=== PATIENT | female | born 1980 | race Caucasian/White ===

== ENCOUNTER 2017-10-02 20:24 | Inpatient (IN) | payer BC ==
[2017-10-02 21:17] LABS: Hematocrit 37 % (35-47); Hemoglobin 12.7 g/dl (12.0-16.0); Mean Corpuscular HGB Conc 34 g/dl (31-36); Mean Corpuscular Hemoglobin 30 pg (27-31); Mean Corpuscular Volume 88 fL (80-97); Platelet Count 268 10^3/ul (150-450); Red Blood Count 4.26 10^6/ul (4.0-5.4); Red Cell Distribution Width 13 % (10.5-15)
[2017-10-02] MEDS ORDERED: OBEPIDURAL* 250 ML EPIDURAL ONE (21:29)
--- NOTE | 2017-10-02 21:36 | HP ---
General Information - General Information Maternal Age: 36 Grav: 1 Para: 0 Estimated Due Date: 09/29/17 Determined By: Early Ultrasound Maternal Blood Type and Rh: O Positive - Results this Serology/RPR Result: Non-Reactive Rubella Result: Immune HBsAg Result: Negative HIV Result: Negative GBS Culture Result: Negative Past Medical History Pertinent Past Medical History: Non-Contributory Past Medical History Comment: No medical problems Past Surgical History Comment: Appendectomy Pertinent Family History: Non-Contributory - Antepartal Records Antepartal Records: Reviewed, Complicated by: - Breech at 33wks with successful ECV by merchandising director Review of Systems Constitutional: Uncomfortable - with contractions CV Complaint: No Respiratory: Shortness of Breath: No Gastrointestinal: No Nausea/Vomiting Genitourinary: Leaking Fluid - small amount over the past few hours, No Bleeding Musculoskeletal: Contractions - varied but now q2-4 Neurological: No Headache, No Visual Changes Movement: Normal Exam Allergies/Adverse Reactions: Allergies No Known Allergies Allergy (Verified 10/02/17 20:02) Lab Values - Entire Visit: Laboratory Tests 10/02/17 10/02/17 21:00 21:00 WBC 24.0 H RBC 4.26 Hgb 12.7 Hct 37 MCV 88 MCH 30 MCHC 34 RDW 13 Plt Count 268 MPV 9.0 Blood Type O Positive - Measurements Height: 5 ft 5 in Weight: 184 lb Body Mass Index (BMI): 30.6 Pre- Weight: 143 lb - Exam Abdomen: No Upper Quadrant Pain Breast: Breast Exam Deferred Extremities: No Edema Heart: Normal Rhythm/Heart Sounds HEENT: No Significant Findings Rectal: Rectal Exam Deferred Targeted Exam Findings Cervical Exam: 6cm Effacement: 90% Station: High Presenting Part: Vertex Membrane Status: Bulging EFM Findings - External Monitor Findings Baseline Heart Rate: 150 External Monitor Findings: Accelerations Present, No Pattern of Variable or Late Decelerations, Variability Moderate, Baseline Stable Contractions: Regular, >90 Seconds Contraction Frequency: q2-4 Assessment/Plan - Reason for Visit Reason for Visit: Pt was planning a home with [facility]. She began prodromal labor on and then progressed into more active labor yesterday (Fri). She did not sleep last night and by this evening she was feeling exhausted and opted to transfer to the hospital desiring an epidural so she could rest. The merchandising director reports the baby is high and she suspects OP and/or asynclitic presentation. The pt says she had a very small amount of leakage over the past few hours but no gushes of fluid. No VB. Good FM. - Plan Plan: Observe Plan Comment: Epidural - Date/Time of Admission Date of Admission: 10/02/17 Time of Admission: 21:50
[2017-10-02 21:42] LABS: ABS Basophils 0.2 10^3/ul (0-0.2); ABS Eosinophils 0 10^3/ul (0-0.6); ABS Lymphocytes 1.5 10^3/ul (1.0-4.8); ABS Monocytes 1.3 10^3/ul (0-0.8); ABS Nucleated RBC 0 10^3/ul; Eosinophil % 0.1 % (0-6); Lymphocyte % 6.4 % (25-47); Nucleated Red Blood Cells % 0
[2017-10-02] MEDS ORDERED: fentaNYL* 50 MCG/ML 2 ML VIAL (100 MCG VIAL) ONE (21:45)
[2017-10-02] MEDS ORDERED: Famotidine TAB* 20 MG PO PRN (22:31)
[2017-10-02] MEDS ORDERED: Sodium Citrate/Citric Acid* 15 ML UDC PO PRN (22:31)
[2017-10-02] MEDS ORDERED: Phenylephrine IV* 40 MCG/ML 10 ML SYRINGE IV PUSH PRN ×2 (22:31)
[2017-10-02] MEDS ORDERED: OBEPIDURAL* 250 ML EPIDURAL SCH (23:00)
[2017-10-03] MEDS ORDERED: Oxytocin in LR* 20 UNITS/1,000 ML BAG IVPB ONE (04:45)
[2017-10-03] MEDS ORDERED: Oxytocin in LR* 20 UNITS/1,000 ML BAG IVPB SCH (05:00)
[2017-10-03] MEDS ORDERED: ceFOXitin 2 GM IVPREMIX* 2 GM/50 ML BAG IVPB ONE (13:33)
[2017-10-03] MEDS ORDERED: Carboprost Tromethamine* 250 MCG INJ ONE (13:45)
[2017-10-03] MEDS ORDERED: fentaNYL* 50 MCG/ML 2 ML VIAL (100 MCG VIAL) ONE (13:46)
[2017-10-03] MEDS ORDERED: Lidocaine 2% PF * 5 ML VIAL ONE (13:46)
[2017-10-03] MEDS ORDERED: Sodium Bicarbonate 8.4% IV* 50 ML VIAL ONE (13:47)
[2017-10-03] MEDS ORDERED: Lidocaine 2% PF* 10 ML AMP ONE (13:47)
[2017-10-03] MEDS ORDERED: Witch Hazel PAD* JAR TOPICAL PRN (13:48)
[2017-10-03] MEDS ORDERED: Phenylephrine IV* 40 MCG/ML 10 ML SYRINGE ONE (14:40)
[2017-10-03] MEDS ORDERED: Ondansetron INJ* 2 MG/ML VIAL ONE (14:49)
[2017-10-03] MEDS ORDERED: Ketorolac INJ* 30 MG/ML 1 ML VIAL ONE (14:49)
[2017-10-03] MEDS ORDERED: Acetaminophen TAB* 325 MG PO PRN (15:34)
[2017-10-03] MEDS ORDERED: Ondansetron INJ* 2 MG/ML VIAL IV PRN ×2 (15:34→15:50)
[2017-10-03] MEDS ORDERED: diPHENhydraMINE IV* 50 MG/ML 1 ml VIAL (BENADRYL) IV PRN ×2 (15:34→15:50)
[2017-10-03] MEDS ORDERED: PROCHLORPERAZINE INJ 5 MG/ML 2 ML VIAL IV PRN (15:34)
[2017-10-03] MEDS ORDERED: Acetaminophen IV 1GM/100ML * 1,000 MG/100 ML VIAL IVPB ONE (15:34)
[2017-10-03] MEDS ORDERED: oxyCODONE/Acetamin 5/325 MG* TAB PO PRN (15:34)
[2017-10-03] MEDS ORDERED: oxyCODONE TAB* 5 MG TAB PO PRN ×2 (15:34→15:50)
[2017-10-03] MEDS ORDERED: fentaNYL* 50 MCG/ML 2 ML VIAL (100 MCG VIAL) IV PRN (15:34)
[2017-10-03] MEDS ORDERED: Naloxone* 0.4 MG/ML 1 ML VIAL IV PRN ×2 (15:34→15:50)
[2017-10-03] MEDS ORDERED: Scopolamine 1.5 mg* PATCH TRANSDERM PRN (15:34)
[2017-10-03] MEDS ORDERED: Ketorolac INJ* 30 MG/ML 1 ML VIAL IV PRN (15:34)
[2017-10-03] MEDS ORDERED: HYDROmorphone INJ* 1 MG/ML CARPUJECT SYRINGE IV PRN (15:34)
[2017-10-03] MEDS ORDERED: Ketorolac INJ* 30 MG/ML 1 ML VIAL IV PUSH PRN (15:39)
[2017-10-03] MEDS ORDERED: Morphine PF AMP (0.5MG/ML)* 5 MG/10 ML AMP ONE (15:44)
[2017-10-03] MEDS: Simethicone TAB* 80 MG TAB.CHEW PO SCH (21:25)
[2017-10-03] MEDS: Docusate CAP* 100 MG PO SCH (21:25)
[2017-10-03] MEDS: Ketorolac INJ* 30 MG/ML 1 ML VIAL IV PRN (21:26)
[2017-10-04] MEDS: Ketorolac INJ* 30 MG/ML 1 ML VIAL IV PRN ×2 (04:26→10:17)
[2017-10-04 06:17] LABS: ABS Basophils 0 10^3/ul (0-0.2); ABS Eosinophils 0.1 10^3/ul (0-0.6); ABS Lymphocytes 1.5 10^3/ul (1.0-4.8); ABS Monocytes 1.4 10^3/ul (0-0.8); ABS Neutrophils 19.6 10^3/ul (1.5-7.7); ABS Nucleated RBC 0 10^3/ul; Eosinophil % 0.3 % (0-6); Hematocrit 27 % (35-47); Hemoglobin 9.5 g/dl (12.0-16.0); Lymphocyte % 6.8 % (25-47); Mean Corpuscular HGB Conc 35 g/dl (31-36); Mean Corpuscular Hemoglobin 30 pg (27-31); Mean Corpuscular Volume 87 fL (80-97); Mean Platelet Volume 8.5 um3 (7.4-10.4); Nucleated Red Blood Cells % 0; Platelet Count 187 10^3/ul (150-450); Red Blood Count 3.14 10^6/ul (4.0-5.4); Red Cell Distribution Width 13 % (10.5-15); White Blood Count 22.6 10^3/ul (3.5-10.8)
[2017-10-04] MEDS ORDERED: oxyCODONE/Acetamin 5/325 MG* TAB PO PRN ×2 (08:00)
[2017-10-04] MEDS: Docusate CAP* 100 MG PO SCH ×4 (08:36→20:02)
[2017-10-04] MEDS: Ferrous Gluconate TAB* 324 MG TAB PO SCH ×2 (08:36→20:02)
[2017-10-04] MEDS: Simethicone TAB* 80 MG TAB.CHEW PO SCH ×4 (08:36→20:02)
[2017-10-04] MEDS ORDERED: Tetan/Diph/Pertus SYR(Tdap)* 0.5 ML SYR(BOOSTRIX) use SYR IM ONE (09:00)
--- NOTE | 2017-10-04 11:16 | OP ---
DATE OF OPERATION: 10/03/17 - ROOM #117 DATE OF : 84 SURGEON: Rozina Rainey MD COMMERCIAL ATTACHE: Ms. Mau CNM ANESTHESIOLOGIST: Dr. Mata. ANESTHESIA: Epidural. PRE-OP DIAGNOSIS: 40 plus 4 weeks gestation with arrest of descent. POST-OP DIAGNOSIS: 40 plus 4 weeks gestation with arrest of descent. OPERATIVE PROCEDURE: Primary low transverse section. ESTIMATED BLOOD LOSS: 800 cc. IV FLUIDS: 1000 cc lactated Ringer's. URINE OUTPUT: 100 cc. MATERIALS TO LAB: Cord blood. INDICATIONS: This patient is a 36-year-old 1, para 0, followed by the home sales project coordinator, Caroline Bravo. The patient was brought to Labor and Delivery last night after a prolonged labor course. The patient received an epidural for anesthesia and then received Pitocin for augmentation of her labor. She made gradual progress, fully dilated and then pushed for about 90 minutes. However, the head did not progress past +1 station and there was no significant descent during pushing. heart rate had gradually become tachycardic in the 160s and 170s, but was otherwise reassuring. At that time, I recommended a section for arrest of descent and the patient agreed. She was extensively counseled and consent was signed. FINDINGS: Normal-appearing uterus, fallopian tubes and ovaries. The delivery is productive of a female infant weighing 9 pounds 5 ounces with Apgars of 8 and 9. Time of delivery was 1430. COMPLICATIONS: None. DESCRIPTION OF PROCEDURE: The risks, benefits, and alternatives were described to the patient and informed consent was obtained. The patient was taken to the operating room with IV running where epidural anesthesia was induced and found to be adequate. The patient was prepped and draped in the normal sterile fashion in the dorsal supine position with leftward tilt. A Pfannenstiel skin incision was made with a scalpel and this was carried down to the underlying fascia sharply. The fascia was then scored in the midline with the scalpel. The incision was extended using Aranda scissors. The rectus muscles were dissected off the rectus fascia using blunt and sharp dissection. The rectus muscles were in the midline bluntly. The peritoneum was also entered bluntly. A bladder blade was placed. A bladder flap was created sharply using Metzenbaum scissors. A low transverse uterine incision was made with the scalpel. This was carried down to the amniotic cavity which was productive of clear fluid. The incision was extended with blunt traction. The head was elevated to the level of the incision with only moderate difficulty and delivered through the incision. With fundal pressure, the shoulders and body delivered without difficulty. The infant had excellent tone and cried immediately on delivery. The cord was doubly clamped and cut. The infant was then handed to the awaiting coordinator of rehabilitation services. Cord blood was collected. The placenta then delivered with manual extraction. The uterus was then exteriorized and cleared of all clots and debris. The uterine incision was reapproximated using 0 Polysorb in a running-locked fashion. A second layer of imbricating sutures of 0 Polysorb was also placed with good hemostasis. The posterior cul-de-sac was irrigated with saline. The uterus was then returned to the abdomen, and the incision was reinspected and noted to be hemostatic. The peritoneum was closed with 3-0 Vicryl in a running fashion. The fascia was closed with 0 Polysorb in a running fashion. Subcutaneous tissues were reapproximated using 3-0 Vicryl in interrupted stitches. The skin was then closed with 4-0 Monocryl in a subcuticular stitch. Mastisol and Steri-Strips were placed over the incision which was then covered with a sterile bandage. The patient tolerated the procedure well. Sponge, lap, and needle counts were correct x2. [id number]/[facility] #: [id number] MTDD
[2017-10-04 11:32] VITALS: BP 112/60
[2017-10-04] MEDS: Ibuprofen TAB* 600 MG PO SCH ×2 (16:32→22:18)
[2017-10-04] MEDS: Acetaminophen TAB* 325 MG PO PRN (21:21)
[2017-10-05] MEDS: Ibuprofen TAB* 600 MG PO SCH (04:40)
[2017-10-05] MEDS: Acetaminophen TAB* 325 MG PO PRN ×2 (04:43→08:46)
[2017-10-05] MEDS: Docusate CAP* 100 MG PO SCH (08:46)
[2017-10-05] MEDS: Simethicone TAB* 80 MG TAB.CHEW PO SCH (08:46)
[2017-10-05] MEDS: Ferrous Gluconate TAB* 324 MG TAB PO SCH (08:46)
[2017-10-06] MEDS ORDERED: Scopolamine PATCH Remove* 1 NOTE MISC PATCH OFF ONE (15:37)
== END 2017-10-05 12:45 | disposition home or self-care (01) | DRG 540 ==
LOC: MCHOBOUT 20:24 → MCHOB 21:11
PROVIDERS: ADMIT Obstetrics & Gynecology; ATTEND Obstetrics & Gynecology
PROC: 10907ZC Drainage of Amniotic Fluid, Therapeutic from Products of Conception, Via Natural or Artificial Opening (ICD-10-PCS; 2017-10-03)
PROC: 4A1HXCZ Monitoring of Products of Conception, Cardiac Rate, External Approach (ICD-10-PCS; 2017-10-03)
PROC: 10D00Z1 Extraction of Products of Conception, Low, Open Approach (ICD-10-PCS; principal; 2017-10-03 14:04)
DX: O48.0 Post-term pregnancy (principal); O63.9 Long labor, unspecified; O62.1 Secondary uterine inertia; O75.81 Maternal exhaustion complicating labor and delivery; Z37.0 Single live birth; Z3A.40 40 weeks gestation of pregnancy; O90.81 Anemia of the puerperium; O76 Abnormality in fetal heart rate and rhythm complicating labor and delivery
CPT/HCPCS: 36415; 85025; 86850; 86900; 86901; A9270-GY; J0694; J1885; J2001; J2405; J3010

== ENCOUNTER 2019-08-24 13:38 | Inpatient (IN) | payer BC ==
[2019-08-24] MEDS ORDERED: Buffered Lidocaine 1% SYRIN* 1 ML/SYRINGE INTRADERM ONE (13:49)
[2019-08-24] MEDS ORDERED: Penicillin G Potassium IV* 5,000,000 UNITS in NS 0.9% 100 ML* 100 ML IVPB ONE (13:49)
[2019-08-24] MEDS ORDERED: Lactated Ringers 1000 ML Bag* 1,000 ML IV ONE (13:49)
[2019-08-24] MEDS ORDERED: Oxytocin in LR* 20 UNITS/1,000 ML BAG IVPB SCH ×2 (14:00→20:00)
[2019-08-24] MEDS ORDERED: Lactated Ringers 1000 ML Bag* 1,000 ML IV SCH ×2 (14:00→20:00)
[2019-08-24 15:04] LABS: ABS Basophils 0.1 10^3/ul (0-0.2); ABS Lymphocytes 2.2 10^3/ul (1.0-4.8); ABS Monocytes 0.6 10^3/ul (0-0.8); ABS Neutrophils 10.3 10^3/ul (1.5-7.7); Eosinophil % 0.3 %; Hematocrit 39 % (35-47); Lymphocyte % 16.9 %; Mean Corpuscular HGB Conc 36 g/dL (31-36); Mean Corpuscular Hemoglobin 32 pg (27-31); Mean Corpuscular Volume 88 fL (80-97); Mean Platelet Volume 9.1 fL (7.4-10.4); Platelet Count 237 10^3/uL (150-450); Red Blood Count 4.43 10^6 /uL (3.70-4.87); Red Cell Distribution Width 13 % (10-15); White Blood Count 13.2 10^3/uL (3.5-10.8)
[2019-08-24 15:31] LABS: Urine Benzodiazepine Screen None Detected (None Detect); Urine Opiates Screen None Detected (None Detect)
[2019-08-24] MEDS ORDERED: Penicillin G Potassium IV* 3,000,000 UNITS in NS 0.9% 100 ML* 100 ML IVPB SCH (19:00)
[2019-08-24] MEDS ORDERED: Dibucaine 1% 28.35 GM TUBE PR PRN (19:50)
[2019-08-24] MEDS ORDERED: Glycerin ADULT SUPP PR PRN (19:50)
[2019-08-24] MEDS ORDERED: Witch Hazel PAD* JAR TOPICAL PRN (19:50)
[2019-08-24] MEDS ORDERED: Acetaminophen TAB* 325 MG PO PRN (19:50)
--- NOTE | 2019-08-24 20:58 | PROCNOTE ---
[facility] OB: Delivery Note - Delivery A Date of : 08/24/19 Time of : 19:08 Sex: Female Weight at : 7 lb 6 oz Score 1 Minute: 9 Score 5 Minutes: 9 Gestational Age in Weeks and Days at Delivery: 39 Weeks and 6 Days Delivery Method: Spontaneous Vaginal Labor: Spontaneous Did Patient attempt ?: Yes, Successful Amniotic Fluid: Clear Estimated Blood Loss: 200 Anesthesia/Analgesia: None Delivered By: Chay Ruth - Nursery Level of Nursery: Regular/Bedside - Perineum Perineal Injury: Perineal Laceration, 2nd Degree Perineal Injury Comment: Repair with 3-0 vicryl Perineal Repair: By Delivering Practioner - Events Delivery Events of Note: Pitocin Only After Delivery, Full Course of Antibiotics Delivery Events of Note Comment: fetus "A" papyrus delivered at 1847, and fetus "A" placenta delivered /c cervical exploration at 1923. Papyrus and placentas to pathology. placenta "with trailing membanes post delivery of normal placenta. cervical exploration . looks to be intact.
[2019-08-24] MEDS ORDERED: Lidocaine 1% INJ* 10 MG/ML 30 ML SDV ONE (23:13)
[2019-08-25 05:47] LABS: ABS Basophils 0.1 10^3/ul (0-0.2); ABS Eosinophils 0.1 10^3/ul (0-0.6); ABS Lymphocytes 2.6 10^3/ul (1.0-4.8); ABS Neutrophils 15.3 10^3/ul (1.5-7.7); Eosinophil % 0.3 %; Hematocrit 36 % (35-47); Hemoglobin 12.7 g/dL (12.0-16.0); Lymphocyte % 13.5 %; Mean Corpuscular HGB Conc 35 g/dL (31-36); Mean Corpuscular Hemoglobin 31 pg (27-31); Mean Corpuscular Volume 89 fL (80-97); Mean Platelet Volume 8.8 fL (7.4-10.4); Platelet Count 228 10^3/uL (150-450); Red Blood Count 4.05 10^6 /uL (3.70-4.87); Red Cell Distribution Width 13 % (10-15)
[2019-08-25] MEDS: Docusate CAP* 100 MG PO SCH ×4 (08:13→20:02)
[2019-08-25] MEDS: Ibuprofen TAB* 600 MG PO PRN ×3 (08:20→20:02)
[2019-08-25] MEDS: Simethicone TAB* 80 MG TAB.CHEW PO SCH (08:44)
[2019-08-25] MEDS: Ferrous Gluconate TAB* 324 MG TAB PO SCH ×2 (08:46→20:02)
[2019-08-26] MEDS: Ibuprofen TAB* 600 MG PO PRN ×2 (04:20→10:24)
[2019-08-26 07:22] VITALS: BP 109/66
[2019-08-26] MEDS: Ferrous Gluconate TAB* 324 MG TAB PO SCH (10:14)
[2019-08-26] MEDS: Docusate CAP* 100 MG PO SCH (10:24)
--- NOTE | 2019-08-30 11:28 | HP ---
General Information - Reason for Visit POSTERM / DESIRES /6CM DILATED - General Information Maternal Age: 38 Grav: 2 Para: 1 SAB: 0 IEA: 0 Estimated Due Date: 08/25/19 Determined By: LMP Maternal Blood Type and Rh: O Positive - Results this Serology/RPR Result: Non-Reactive Rubella Result: Immune HBsAg Result: Negative HIV Result: Negative GBS Culture Result: Positive Past Medical History Pertinent Past Medical History: See Records Pertinent Past Surgical History: See Records Pertinent Family History: See Records - Antepartal Records Antepartal Records: Reviewed, Uncomplicated Review of Systems Constitutional: Comfortable CV Complaint: No Respiratory: Shortness of Breath: No Gastrointestinal: No Nausea/Vomiting Genitourinary: No Bleeding, No Leaking Fluid Musculoskeletal: No Complaint Neurological: No Headache Movement: Normal Exam Allergies/Adverse Reactions: Allergies No Known Allergies Allergy (Verified 10/02/17 20:02) Lab Values - Entire Visit: Laboratory Tests 08/24/19 08/24/19 08/24/19 14:50 14:50 14:50 WBC 13.2 H RBC 4.43 Hgb 14.0 Hct 39 MCV 88 MCH 32 H MCHC 36 RDW 13 Plt Count 237 MPV 9.1 Neut % (Auto) 77.7 Lymph % (Auto) 16.9 Tyrrell % (Auto) 4.6 Eos % (Auto) 0.3 Baso % (Auto) 0.5 Absolute Neuts (auto) 10.3 H Absolute Lymphs (auto) 2.2 Absolute Monos (auto) 0.6 Absolute Eos (auto) 0.0 Absolute Basos (auto) 0.1 Absolute Nucleated RBC 0.0 Nucleated RBC % 0.0 POC Glucose (mg/dL) Urine Opiates Screen None detected Ur Barbiturates Screen None detected Ur Phencyclidine Scrn None detected Ur Amphetamines Screen None detected U Benzodiazepines Scrn None detected Urine Cocaine Screen None detected U Cannabinoids Screen None detected Blood Type O Positive Antibody Screen Negative 08/24/19 08/25/19 15:05 05:35 WBC 19.0 H RBC 4.05 Hgb 12.7 Hct 36 MCV 89 MCH 31 MCHC 35 RDW 13 Plt Count 228 MPV 8.8 Neut % (Auto) 80.8 Lymph % (Auto) 13.5 Tyrrell % (Auto) 5.0 Eos % (Auto) 0.3 Baso % (Auto) 0.4 Absolute Neuts (auto) 15.3 H Absolute Lymphs (auto) 2.6 Absolute Monos (auto) 1.0 H Absolute Eos (auto) 0.1 Absolute Basos (auto) 0.1 Absolute Nucleated RBC 0.0 Nucleated RBC % 0.0 POC Glucose (mg/dL) 88 Urine Opiates Screen Ur Barbiturates Screen Ur Phencyclidine Scrn Ur Amphetamines Screen U Benzodiazepines Scrn Urine Cocaine Screen U Cannabinoids Screen Blood Type Antibody Screen - Measurements Height: 5 ft 5 in Weight: 174 lb Weight in lbs: 174.939423 Body Mass Index (BMI): 28.9 Pre- Weight: 150 lb Weight Gained This : 24 lbs and 0 ozs - Exam Breast: Breast Exam Deferred Extremities: No Edema Heart: Normal Rhythm/Heart Sounds HEENT: No Significant Findings Lungs: Clear Bilaterally Rectal: Rectal Exam Deferred Reflexes: DTR 2+ Targeted Exam Findings See L&D Outpatient Visit Provider Note for Findings: N/A Cervical Exam: 6cm Effacement: 80% Station: -1 Presenting Part: Vertex Membrane Status: Intact EFM Findings - External Monitor Findings External Monitor Findings: Accelerations Present, No Pattern of Variable or Late Decelerations, Variability Moderate Contractions: Irregular Assessment/Plan - Assessment PREVIOUS SECTION FOR - Obstetrical Risk Factors Obstetrical Risk Factors: GBS Positive - Plan Plan: Induction, Antibiotic Prophylaxis
== END 2019-08-26 11:00 | disposition home or self-care (01) | DRG 560 ==
LOC: MCHOBOUT 13:38 → MCHOB 13:47
PROVIDERS: ADMIT Obstetrics & Gynecology; ATTEND Obstetrics & Gynecology
PROC: 10E0XZZ Delivery of Products of Conception, External Approach (ICD-10-PCS; principal; 2019-08-24)
PROC: 10907ZC Drainage of Amniotic Fluid, Therapeutic from Products of Conception, Via Natural or Artificial Opening (ICD-10-PCS; 2019-08-24)
PROC: 3E033VJ Introduction of Other Hormone into Peripheral Vein, Percutaneous Approach (ICD-10-PCS; 2019-08-24)
PROC: 4A1HXCZ Monitoring of Products of Conception, Cardiac Rate, External Approach (ICD-10-PCS; 2019-08-24)
PROC: 0KQM0ZZ Repair Perineum Muscle, Open Approach (ICD-10-PCS; 2019-08-24)
PROC: 10J17ZZ Inspection of Products of Conception, Retained, Via Natural or Artificial Opening (ICD-10-PCS; 2019-08-24)
DX: O34.211 Maternal care for low transverse scar from previous cesarean delivery (principal); O72.0 Third-stage hemorrhage; Z37.3 Twins, one liveborn and one stillborn; O99.824 Streptococcus B carrier state complicating childbirth; Z3A.39 39 weeks gestation of pregnancy; O70.1 Second degree perineal laceration during delivery; O31.33 Continuing pregnancy after elective fetal reduction of one fetus or more, third trimester; O30.043 Twin pregnancy, dichorionic/diamniotic, third trimester; O24.429 Gestational diabetes mellitus in childbirth, unspecified control
CPT/HCPCS: 36415; 80307; 85025; 86850; 86900; 86901; 88307; 88309; A9270-GY; G0480; J2540